=== PATIENT | male | born 1935 | race Caucasian/White ===

== ENCOUNTER 2017-08-23 16:18 | Inpatient (IN) | payer MEDICARE ==
[~2017-08-23] VITALS: Ht 172.7 cm; Wt 74.2 kg
[~2017-08-23 16:18] MED LIST: ACET650S21 PO; AMLO5TAB2 PO; ASPI-496 PO; ATOR10TA9 PO; BISA5TAB5 PO; CEFD300C37 PO; DOCU100C33 PO; HEPA500024 SQ; LEVO750T26 PO; LISI-167 PO; NICO-487 TD; ONDA4TAB12 PO; OXYC5TAB3 PO; POLY17PO5 PO; SENN1TAB94 PO; TAMS-11 PO; TRAM50TA2 PO; [UNRECOGNIZED DRUG - REMARK]; [UNRECOGNIZED DRUG - REMARK]
[2017-08-23] MEDS ORDERED: SODIUM CHLORIDE FLUSH 10ML SYR IVF ONE (16:30)
[2017-08-23 16:53] LABS: HEMATOCRIT 46.3 % (39.2-51.8); HEMOGLOBIN 15.6 g/dL (13.7-18.0); WHITE BLOOD COUNT 9.5 x10^3/uL (3.4-10)
[2017-08-23 17:01] LABS: BLOOD UREA NITROGEN 32 mg/dL (7-18)
[2017-08-23 17:06] LABS: ASPARTATE AMINO TRANSFERASE 10 U/L (15-37)
[2017-08-23 17:07] LABS: IS PT STATUS REG ER OR PRE ER? YES
[2017-08-23] MEDS ORDERED: CEFTRIAXONE PMX 1GM/50ML 50 ML IV ONE (18:30)
[2017-08-23] MEDS ORDERED: SODIUM CHLORIDE 0.9% 1,000ML IVBOLUS ONE (18:30)
[2017-08-23] MEDS ORDERED: PENI250T91 PO (18:40)
[2017-08-23] MEDS ORDERED: CEFTRIAXONE PMX 1GM/50ML 50 ML ONE (18:48)
[2017-08-23] MEDS ORDERED: DEXAMETHASONE 4 MG/ML, 1ML IVPush ONE (19:30)
[2017-08-23] MEDS ORDERED: DEXAMETHASONE 4 MG/ML, 5ML ONE (20:03)
[2017-08-23] MEDS ORDERED: OMNIPAQUE 350 MG/ML, 100ML BOTTLE ONE (20:25)
[2017-08-23] MEDS ORDERED: LABETALOL 5MG/ML, 20ML ONE (21:15)
[2017-08-23] MEDS ORDERED: LABETALOL 5MG/ML, 20ML IVPush ONE (21:30)
[2017-08-23] MEDS ORDERED: TEMAZEPAM 15 MG CAPSULE PO PRN (22:30)
[2017-08-23] MEDS ORDERED: ENALAPRILAT 1.25 MG/ML, 2ML IVPush PRN (22:30)
[2017-08-23] MEDS: POLYETHYLENE GLYCOL 17 GM PACKET PO SCH (22:30)
[2017-08-23] MEDS ORDERED: morphine SULFATE 10 MG/ML, 1ML IVPush PRN (22:30)
[2017-08-23] MEDS ORDERED: HYDROcodone/APAP 5/325 TABLET PO PRN (22:30)
[2017-08-23] MEDS ORDERED: ACETAMINOPHEN 325 MG TABLET PO PRN (22:30)
[2017-08-23] MEDS ORDERED: ONDANSETRON 2MG/ML, 2ML IVPush PRN (22:30)
[2017-08-23 22:47] VITALS: BP 147/84
[2017-08-23] MEDS ORDERED: ALBUTEROL/IPRATROPIUM 2.5MG/0.5MG, 3 ML ONE (23:09)
[2017-08-23] MEDS ORDERED: ALBUTEROL/IPRATROPIUM 2.5MG/0.5MG, 3 ML NPPB PRN (23:30)
[2017-08-23] MEDS: SODIUM CHLORIDE 0.9% 1,000 ML IV SCH (23:47)
[2017-08-24] MEDS: DEXAMETHASONE 4 MG/ML, 1ML IVPush SCH ×3 (01:30→14:14)
[2017-08-24 02:43] VITALS: BP 108/69
[2017-08-24 04:37] LABS: HEMATOCRIT 42.7 % (39.2-51.8); HEMOGLOBIN 14.1 g/dL (13.7-18.0); WHITE BLOOD COUNT 8.9 x10^3/uL (3.4-10)
[2017-08-24 04:51] LABS: BLOOD UREA NITROGEN 33 mg/dL (7-18)
[2017-08-24] MEDS ORDERED: CEFTRIAXONE PMX 1GM/50ML 50 ML IV SCH (07:00)
[2017-08-24 07:08] VITALS: BP 130/77
[2017-08-24] MEDS: POLYETHYLENE GLYCOL 17 GM PACKET PO SCH (09:34)
[2017-08-24 13:01] VITALS: BP 129/71
[2017-08-24] MEDS: SODIUM CHLORIDE 0.9% 1,000 ML IV SCH (14:13)
== END 2017-08-24 15:58 | disposition left against medical advice (07) | DRG 190 ==
LOC: ED 16:31 → EDIP 19:45 → 3NW 22:25
PROVIDERS: ADMIT Hospitalist; ATTEND Hospitalist
DX: J44.0 Chronic obstructive pulmonary disease with (acute) lower respiratory infection (principal); J18.9 Pneumonia, unspecified organism; N17.9 Acute kidney failure, unspecified; C79.31 Secondary malignant neoplasm of brain; I13.0 Hypertensive heart and chronic kidney disease with heart failure and stage 1 through stage 4 chronic kidney disease, or unspecified chronic kidney disease; M48.56XA Collapsed vertebra, not elsewhere classified, lumbar region, initial encounter for fracture; I50.30 Unspecified diastolic (congestive) heart failure; C34.11 Malignant neoplasm of upper lobe, right bronchus or lung; N13.8 Other obstructive and reflux uropathy; Z53.21 Procedure and treatment not carried out due to patient leaving prior to being seen by health care provider; N30.90 Cystitis, unspecified without hematuria; N32.0 Bladder-neck obstruction; F32.9 Major depressive disorder, single episode, unspecified; I71.4 Abdominal aortic aneurysm, without rupture; K59.09 Other constipation; E78.5 Hyperlipidemia, unspecified; N18.9 Chronic kidney disease, unspecified; N40.1 Benign prostatic hyperplasia with lower urinary tract symptoms; Z85.118 Personal history of other malignant neoplasm of bronchus and lung; Z86.73 Personal history of transient ischemic attack (TIA), and cerebral infarction without residual deficits; Z87.891 Personal history of nicotine dependence; Z87.01 Personal history of pneumonia (recurrent); Z91.19 Patient's noncompliance with other medical treatment and regimen; Z88.5 Allergy status to narcotic agent
CPT/HCPCS: 36415; 70450; 71260; 74177; 80048; 80053; 81001; 83605; 83690; 84145; 84484; 85025; 87040; 87077; 87086; 93005; 96365; 96375; J0696; J1100; Q9967; J7030